=== PATIENT | female | born 1960 | race Caucasian/White ===

== ENCOUNTER 2017-09-09 07:50 | Emergency (ER) | END 2017-09-09 09:14 | disposition home or self-care (01) ==

== ENCOUNTER 2019-01-26 02:31 | Emergency (ER) | payer BC ==
[~2019-01-26] VITALS: Ht 160 cm; Wt 91.9 kg
[~2019-01-26 02:31] MED LIST: ANXIETY MED PO; FAMOTIDINE PO; HYDR-4011 PO; HYDR-762 PO; IBUP800T48 PO; OMEPRAZOLE; PROBIOTIC PO
[2019-01-26 02:36] VITALS: Ht 160 cm; Wt 91.9 kg
[2019-01-26] MEDS ORDERED: SOD CHLORIDE 0.9% 1,000 ML IV STA (02:56)
--- NOTE | 2019-01-26 04:37 | ERD ---
ER Documentation Chief Complaint Chief Complaint L SIDE BODY NUMBNESS X'S 2 HOURS, DENIES GAUTAM. HPI During the patient's encounter translation services were utilized Language: Maltese Source: In person 58-year-old female remote history of uterine CA status post resection who presents to the emergency room with approximately 12 hours of symptoms of left- sided paresthesia. The patient describes paresthesias to the left side of her body that are intermittent. It is only to the upper and lower extremity. This does not involve her face. She denies any motor weakness no clumsiness no slurred speech. She denies any significant headache. No fevers chills or cough. ROS All systems reviewed and are negative except as per history of present illness. Medications Home Meds Active Scripts Hydrocodone/Acetaminophen ([place] 5-325 Tablet) 1 Each Tablet, 1 TAB PO Q6H PRN for PAIN, #20 TAB Prov:SAMIA ARROYO PA-C 09/09/17 Ibuprofen* (Motrin*) 800 Mg Tab, 800 MG PO Q6, #30 TAB Prov:SAMIA ARROYO PA-C 09/09/17 Hydrocodone Bit-Acetaminophen* ([place]*) 10-325 Mg Tablet, 1 TAB PO Q6 PRN for PAIN, #20 TAB Prov:ROBERT DONALDSON PA-C 04/09/15 Discontinued Reported Medications [Anxiety Med] No Conflict Check, PO 03/26/15 [Famotidine] No Conflict Check, PO 03/26/15 [Probiotic] No Conflict Check, PO 03/26/15 [Omeprazole] No Conflict Check 03/26/15 Allergies Allergies: Coded Allergies: No Known Allergy (Unverified , 01/26/19) PMhx/Soc History of Surgery: No Anesthesia Reaction: No Hx Neurological Disorder: No Hx Respiratory Disorders: No Hx Cardiac Disorders: No Hx Psychiatric Problems: No Hx Miscellaneous Medical Probl: No Hx Alcohol Use: No Hx Substance Use: No Hx Tobacco Use: No FmHx Family History: No diabetes Physical Exam Vitals Vital Signs Date Temp Pulse Resp B/P (MAP) Pulse Ox O2 O2 Flow FiO2 Time Delivery Rate 01/26/19 98.8 67 12 98/58 (71) 98 Room Air 02:41 01/26/19 99.1 78 18 153/78 96 02:36 (103) Physical Exam General: Well developed, well nourished, no acute distress Head: Normocephalic, atraumatic. Eyes: Pupils equally reactive, EOM intact ENT: Moist mucous membranes Neck: Supple, no lymphadenopathy Respiratory: Lungs clear bilaterally, no distress Cardiovascular: RRR, no murmurs, rubs, or gallops Abdominal: Soft, non-tender, non-distended, no peritoneal signs : Deferred MSK: No edema, no unilateral swelling, 5/5 strength Neurologic: Alert and oriented, moving all extremities, normal speech, no focal weakness, no cerebellar signs, no pronator drift, normal rapid alternating movements. NIHSS 0 Skin: No rash Psych: Normal mood Result Diagram: 01/26/19 0251 01/26/19 0251 Results 24 hrs Laboratory Tests Test 01/26/19 02:51 01/26/19 03:07 White Blood Count 7.8 10^3/ul Red Blood Count 4.75 10^6/ul Hemoglobin 13.5 g/dl Hematocrit 41.2 % Mean Corpuscular Volume 86.7 fl Mean Corpuscular Hemoglobin 28.4 pg Mean Corpuscular Hemoglobin Concent 32.8 g/dl Red Cell Distribution Width 15.2 % Platelet Count 234 10^3/UL Mean Platelet Volume 11.9 fl Immature Granulocytes % 0.100 % Neutrophils % 50.4 % Lymphocytes % 36.3 % Monocytes % 10.9 % Eosinophils % 1.5 % Basophils % 0.8 % Nucleated Red Blood Cells % 0.0 /100WBC Immature Granulocytes # 0.010 10^3/ul Neutrophils # 3.9 10^3/ul Lymphocytes # 2.8 10^3/ul Monocytes # 0.9 10^3/ul Eosinophils # 0.1 10^3/ul Basophils # 0.1 10^3/ul Nucleated Red Blood Cells # 0.0 10^3/ul Prothrombin Time 12.4 Sec Prothrombin Time Ratio 1.0 INR International Normalized Ratio 0.91 Activated Partial Thromboplast Time 37.7 Sec Sodium Level 142 mmol/L Potassium Level 3.8 mmol/L Chloride Level 106 mmol/L Carbon Dioxide Level 30 mmol/L Anion Gap 6 Blood Urea Nitrogen 21 mg/dl Creatinine 0.80 mg/dl Est Glomerular Filtrat Rate mL/min > 60 mL/min Glucose Level 105 mg/dl Calcium Level 8.6 mg/dl Troponin I < 0.012 ng/ml Triglycerides Level 164 mg/dl Cholesterol Level 166 mg/dl LDL Cholesterol, Calculated 90 mg/dl HDL Cholesterol 43 mg/dl Cholesterol/HDL Ratio 3.8 RATIO Bedside Glucose 81 mg/dL Current Medications Medications Dose Sig/Zenaida Start Time Status Last (Trade) Ordered Route PRN Stop Time Admin Dose Reason Admin Sodium 1,000 ml @ Q1H STAT 01/26/19 DC 01/26/19 Chloride 1,000 mls/hr IV 02:56 03:01 01/26/19 03:55 Procedures/MDM EKG, MONITORS, & DIAGNOSTIC IMAGING: EKG: I reviewed and interpreted a 12-lead EKG. Rhythm: Normal sinus rhythm ST Changes: No contiguous ST segment elevations T waves: No contiguous T wave inversions Impression: No evidence of acute cardiac ischemia Chest x-ray: I reviewed and interpreted a 1 view of the chest Mediastinum: No enlargement Cardiac silhouette: No cardiomegaly Airspace: Clear lung brown bilaterally without evidence of pneumothorax Bones: No evidence of fracture CT brain: IMPRESSION: No definite acute intracranial abnormality, including no intracranial hemorrhage, mass effect or recent territorial infarct, the latter of which may initially be inapparent by CT and for which MRI is considered more sensitive. Call report was made to Dr. Vincent at time of dictation 0324 hours. LAB INTERPRETATION: I reviewed the laboratory testing and it shows no evidence of acute process MEDICAL DECISION MAKING: The patient is nonspecific paresthesia to the left side of her body. Patient has an otherwise nonfocal exam. This is idiopathic and unlikely secondary to stroke syndrome. Patient has no signs or symptoms of focal deficit on ne urologic examination. Patient has subjective paresthesias but is able to have sensation on the left side of her body. No signs or symptoms concerning for dissection or ACS. Laboratory testing and d iagnostic imaging would be appropriate but if no clear source is found the patient can be safely discharged with close primary care follow-up. Outpatient MRI imaging would possibly be necessary. ER COURSE: * Laboratory testing and diagnostic imaging is unrevealing. The patient continues to be well-appearing and can be safely discharged home. CONSULTATION: None DISPOSITION PLAN: The patient does not have an identifiable emergent medical condition that warrants inpatient hospitalization at this time. The patient is deemed safe for discharge with outpatient follow-up. We discussed follow up with the patient's primary care doctor within 24 to 48 hours as needed. We also discussed return to the emergency room for worsening symptoms or worsening condition. Outpatient referral: None required Discharge Medications: None required Departure Diagnosis: Primary Impression: Paresthesia Condition: Stable Patient Instructions: Paraesthesias [facility] Bria se gautam hecho un examen mdico de control que le indica que no est en lupe condicin que requiera tratamiento urgente en el Departamento de Emergencia. Un estudio ms profundo y el tratamiento de logan condicin pueden esperar sin ningn riesgo hasta que usted sea atendida/o en el consultorio de logan mdico o lupe clnica. Es responsabilidad suya arreglar lupe donna para el seguimiento del carley. MANEJO DE CONDICIONES NO URGENTES EN EL FUTURO 1) Si usted tiene un mdico de atencin primaria: Usted debera llamar a logan mdico de atencin primaria antes de venir al departamento de emergencia. Despus de las horas de consultorio, logan doctor o logan asociado/a est disponible por telfono. El mdico o enfermero de nidhi en el servicio telefnico puede asesorarle por dell medio para atender el problema, o carley contrario se puede programar lupe donna. 2) Si usted no tiene un mdico de atencin primaria: Llame al mdico o clnica de referencia que aparece abajo joana las horas de consultorio para hacer lupe donna para que le vean. CLINICAS: [facility] [phone] [id number] [facility] [phone] [facility] [phone] [facility]. [place] [id number] [phone] [facility]. [place] [id number] [phone] [facility]. [phone] [address] [facility]. [facility] () Bria se gautam hecho un examen mdico de control que le indica que no est en lupe condicin que requiera tratamiento urgente en el Departamento de Emergencia. Un estudio ms profundo y el tratamiento de logan condicin pueden esperar sin ningn riesgo hasta que usted sea atendida/o en el consultorio de logan mdico o lupe clnica. Es responsabilidad suya arreglar lupe donna para el seguimiento del carley. MANEJO DE CONDICIONES NO URGENTES EN EL FUTURO 1) Si usted tiene un mdico de atencin primaria: Bria debera llamar a logan mdico de atencin primaria antes de venir al departamento de emergencia. Despus de las horas de consultorio, logan doctor o logan asociado/a est disponible por telfono. El mdico o enfermero de nidhi en el servicio telefnico puede asesorarle por dell medio para atender el problema, o carley contrario se puede programar lupe donna. 2) Si usted no tiene un mdico de atencin primaria: Llame al mdico o condado institucions de referencia que aparece abajo joana las horas de consultorio para hacer lupe donna para que le vean. SI USTED NO PUEDE PAGAR PARA ABUNDIO UN MEDICO puede ir a: [facility] [address] [place] [address] [facility] [address] [place] [address] [facility] [address] [place] [address] PARA VIDYA [facility] [address] [place] [address] Additional Instructions: Llame al doctor nombrado abajo (Referral Sources) MAANA y sheree lupe DONNA PARA DENTRO DE LUPE SEMANA. Dgale a la secretaria que nosotros le instruimos hacer esta donna.Avise o llame si logan condicin se empeora antes de la donna. LEATHA VINCENT MD Jan 26, 2019 04:37
[2019-01-26 05:33] VITALS: BP 109/55; PULSE 67; RESP 16
== END 2019-01-26 05:33 | disposition home or self-care (01) ==
LOC: E/R 02:31
DX: R20.2 Paresthesia of skin (principal); R40.2142 Coma scale, eyes open, spontaneous, at arrival to emergency department; R40.2362 Coma scale, best motor response, obeys commands, at arrival to emergency department; R40.2252 Coma scale, best verbal response, oriented, at arrival to emergency department; Z85.42 Personal history of malignant neoplasm of other parts of uterus
CPT/HCPCS: 36415; 70450; 71045; 80048; 80061; 81003; 82962; 83036; 84484; 85025; 85610; 85730; 93005; 99285; J7030